=== PATIENT | male | born 1990 | race Caucasian/White ===

== ENCOUNTER 2017-12-15 23:29 | Emergency (ER) | payer BC, MEDICAID ==
[2017-12-15] MEDS ORDERED: CEPHALEXIN 500 MG CAPSULE PO ONE (23:58)
[2017-12-15] MEDS ORDERED: HYDROCODONE/ACETAMINOPHEN 5-325 MG TABLET PO ONE (23:58)
[2017-12-15] MEDS ORDERED: SULFAMETHOXAZOLE/TRIMETHOPRIM 800-160 MG TABLET PO ONE (23:58)
[2017-12-15] MEDS ORDERED: LIDOCAINE 1% INJ-PF (10 MG/ML) 30 ML SDV INJ ONE (23:59)
[2017-12-16 00:02] VITALS: BP 129/71
--- NOTE | 2017-12-16 00:07 | ER Document Report ---
ED General - General Chief Complaint: Ankle Pain Stated Complaint: ANKLE PAIN Time Seen by Provider: 12/15/17 23:53 Mode of Arrival: Ambulatory Information source: Patient TRAVEL OUTSIDE OF THE [place] IN LAST 30 DAYS: No - HPI Notes: Patient is a 27-year-old otherwise healthy male presents to the emergency department with report of left lateral lower leg irritation with a small abrasion that has progressed to worsening pain and swelling and redness. The patient is unaware of any specific injury to the ankle or insect bite, but he has to wear boots that may abrade the area during the day. The patient denies any numbness or paresthesia or chest pain or difficulty breathing. No other area of wounds or abscesses. No history of MRSA. No knee pain or significant foot pain. Past Medical History - General Information source: Patient - Social History Smoking Status: Current Every Day Smoker Frequency of alcohol use: None Drug Abuse: None Lives with: Family Family History: Reviewed & Not Pertinent Review of Systems - Review of Systems -: Yes All other systems reviewed and negative Physical Exam - Vital signs Vitals: Temp Pulse Resp BP Pulse Ox 99.2 F 89 16 129/71 H 97 12/15/17 23:59 12/15/17 23:59 12/15/17 23:59 12/15/17 23:59 12/15/17 23:59 - Notes Notes: Examination General no apparent distress Neck supple nontender HEENT conjunctiva clear Back supple nontender Examination of the left lower extremity shows nonfocal hip and knee exam. Patient has a small area of abscess just above the left lateral ankle with an abrasion/scab in the center of it. Question of there is some purulence below this area of scab. There is very minimal induration 1 cm surrounding the scab. This does not involve the ankle itself and there is no pain with movement to the ankle, but the patient does have some surrounding cellulitis to this area. No proximal erythema or adenopathy. Distally, the patient is neurovascularly intact. Course - Re-evaluation Re-evalutation: 12/16/17 01:09 Patient was given Bactrim and Keflex by mouth. Patient was given [place] by mouth. Following discussion of risks, alternatives, and benefits, the patient had the lateral ankle wound area cleaned with Shur-Clens, then locally infiltrated with lidocaine 1% 0.5 mL's, then the superficial scab was unroofed and purulent material was obtained which was sent for culture. There was no need for any further incision or drainage to the area. The wound was then cleaned and irrigated with saline and Shur-Clens and then saline and. The wound was left open and there was no need for packing. Question a staph infection. Question MRSA given the symptoms as described. We will double cover the patient with Keflex and Bactrim antibiotic and have him follow-up with local practitioner. No evidence for septic arthritis or systemic infection. Patient is afebrile. 12/16/17 01:16 - Vital Signs Vital signs: Temp Pulse Resp BP Pulse Ox 99.2 F 89 16 129/71 H 97 12/15/17 23:59 12/15/17 23:59 12/15/17 23:59 12/15/17 23:59 12/15/17 23:59 Discharge - Discharge Clinical Impression: Abscess Cellulitis Qualifiers: Site of cellulitis: extremity Site of cellulitis of extremity: lower extremity Laterality: left Qualified Code(s): L03.116 - Cellulitis of left lower limb Condition: Stable Disposition: HOME, SELF-CARE Instructions: Abscess ([facility]), Cellulitis ([facility]), Family Physicians / Practices, Post Incision and Drainage Additional Instructions: Keep the wound clean and dry. Apply antibiotic ointment to the wound. Prescriptions: Cephalexin Monohydrate [Keflex 500 mg Capsule] 500 mg PO Q6H 8 Days capsule Sulfamethoxazole/Trimethoprim [Bactrim Ds Tablet] 2 each PO BID #32 tablet Forms: Return to Work
[2017-12-16] MEDS ORDERED: HYDROCODONE/ACETAMINOPHEN 5-325 MG (6 TAB/ER DISP) PO PRN (00:45)
== END 2017-12-16 01:00 | disposition home or self-care (01) ==
LOC: ER 23:29
DX: L03.116 Cellulitis of left lower limb (principal); F17.200 Nicotine dependence, unspecified, uncomplicated
CPT/HCPCS: 99283; 87070; 87205; 87075; 87077; 87186; J3490; A6266